=== PATIENT | female | born 1970 | race Asian ===

== ENCOUNTER 2022-12-01 11:26 | Outpatient (CLI) | payer BC, SELFPAY | END 2022-12-01 11:27 | disposition home or self-care (01) | LOC: LONREF 11:27 | PROVIDERS: Visit Provider Nurse Practitioner Family | DX: Z00.00 Encounter for general adult medical examination without abnormal findings (principal); I10 Essential (primary) hypertension | CPT/HCPCS: 80053 ==

== ENCOUNTER 2023-03-20 09:48 | Outpatient (CLI) | payer OTHER, SELFPAY | END 2023-03-20 09:49 | disposition home or self-care (01) | PROVIDERS: PCP Registered Nurse; Visit Provider Registered Nurse | DX: R10.12 Left upper quadrant pain (principal) | CPT/HCPCS: 80076; 83690 ==

== ENCOUNTER 2023-04-11 09:17 | Outpatient (CLI) | payer OTHER, SELFPAY | END 2023-04-11 09:18 | disposition home or self-care (01) | PROVIDERS: PCP Family Medicine; Visit Provider Family Medicine | DX: Z00.00 Encounter for general adult medical examination without abnormal findings (principal); I10 Essential (primary) hypertension; R74.01 Elevation of levels of liver transaminase levels; D58.2 Other hemoglobinopathies; F10.10 Alcohol abuse, uncomplicated; Z13.6 Encounter for screening for cardiovascular disorders | CPT/HCPCS: 80053; 80061; 82728; 84443 ==

== ENCOUNTER 2023-05-23 11:34 | Outpatient (CLI) | payer OTHER, SELFPAY ==
[2023-05-23 12:05] VITALS: BP 144/88; PULSE 77; RESP 16; O2SAT 97; BMI 22.7
--- NOTE | 2023-05-23 12:32 | W.ANESCHARGE ---
Anesthesia Charges Start Date/Time Anesthesia Start Date: 05/23/23 Anesthesia Start Time: 12:44 Stop Date/Time Anesthesia Stop Date: 05/23/23 Anesthesia Stop Time: 12:55
--- NOTE | 2023-05-23 12:33 | PC.NURSE ---
12:05 pm: PAtient offered Culturist, Rosa, via Ipad. Patient declined. Chemistry Research Assistant stated to verbalize if she changes her mind and would like the interpeter. Patient verbalized understanding.
--- NOTE | 2023-05-23 12:46 | PC.NURSE ---
1244: CHRISTIANO Curran present at the bedside to monitor vital signs and administer sedation. See anesthesia flowsheet.
[2023-05-23 12:55] VITALS: BP 129/68; PULSE 69; RESP 16; O2SAT 93
--- NOTE | 2023-05-23 12:56 | W.ANESCHARGE ---
Anesthesia Charges Start Date/Time Anesthesia Start Date: 05/23/23 Anesthesia Start Time: 12:44 Stop Date/Time Anesthesia Stop Date: 05/23/23 Anesthesia Stop Time: 12:55
[2023-05-23 13:05] VITALS: BP 137/64; PULSE 67; RESP 16; O2SAT 94
[2023-05-23 13:05] LABS: Basophils Absolute Auto 0.09 K/uL (0.00-0.30); Basophils Percent Auto 0.9 % (0.0-3.0); Eosinophils Absolute Auto 0.33 K/uL (0.00-0.50); Eosinophils Percent Auto 3.2 % (0.0-7.0); Hematocrit 60.4 % (33.0-51.0); Hemoglobin* 18.8 gm/dL (12.0-16.0); Immature Granulocytes Abs Auto 0.02 K/uL (0.00-0.30); Immature Granulocytes Pct Auto 0.2 %; Immature Reticulocyte Fraction 14.3 % (3.0-15.9); Lymphocytes Percent Auto 16.2 % (20-44); Mean Corpuscular HGB Conc 31 gm/dL (32-36); Mean Corpuscular Hemoglobin 25 pg (26-34); Mean Corpuscular Volume 81 fL (80-100); Monocytes Percent Auto 3.6 % (0.0-11.0); Neutrophils Percent Auto 75.9 % (42.0-72.0); Platelet Count* 344 K/uL (140-440); RDW Coefficient of Variation % 18.5 % (11.5-15.5); Red Blood Count 7.46 m/uL (4.00-5.20); Reticulocyte Hemoglobin Equivi 29.2 pg (29.0-35.0); Reticulocyte Percent 1.3 % (0.5-2.0); Reticulocytes Absolute 0.09 # (0.03-0.08); White Blood Count* 10.34 K/uL (4.50-11.00)
[2023-05-23 13:09] LABS: Slide Review Reflex No
[2023-05-23 13:16] VITALS: BP 113/71; PULSE 68; RESP 16; O2SAT 97
== END 2023-05-23 13:34 | disposition home or self-care (01) ==
LOC: OP CLINIC 11:34
PROVIDERS: PCP Family Medicine; Visit Provider Internal Medicine Hematology & Oncology
DX: D75.1 Secondary polycythemia (principal)
CPT/HCPCS: 01112; 36415; 38222; 85025; 85045; 88237; 88264; 88305; 88311; 88313; 88360; J1644; J2001; J2704

== ENCOUNTER 2023-05-30 08:51 | Outpatient (CLI) | payer OTHER, SELFPAY ==
--- NOTE | 2023-05-30 09:15 | MR_ITS ---
Patient: BRENDA SALDAÑA Facility:?[facility] Patient ID:?[id number] Site Patient ID:?[id number]. Site :?[id number] Study:?MRI-Abdomen W/ and W/O Cont 15 CC DOTAREM LIVER-05/30/2023 10:49:09 AM Ordering Physician:?LIOR GANN Final Report: INDICATION: Liver disease; elevated levels of transaminase. COMPARISON: CT chest, abdomen and pelvis with contrast May 22, 2023. TECHNIQUE: Precontrast T1 and T2 weighted imaging; T2 haste imaging; diffusion-weighted imaging; in- and out of phase imaging; postcontrast imaging including subtraction; 15 cc of MultiHance contrast was injected. Findings: The splenomegaly with the spleen measuring 12.4 cm in maximum dimension. Splenic infarct. No evidence of fatty infiltration of the liver. 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 Splenic vein is not visualized and instead collateral venous channels in the left upper quadrant of the abdomen. The superior mesenteric vein and the posterior right portal vein are unremarkable. The hepatic veins are normal. Transient perfusion abnormalities involving the left hepatic lobe most likely secondary to portal vein occlusion. A 1.5 x 0.7 cm area of restricted diffusion subcapsular location right hepatic lobe. Impression: 1. Splenomegaly with evidence of splenic infarct. 2. Splenic vein is not opacified instead there are collateral venous channels in the left upper quadrant of the abdomen. 3. 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 Dictated by Shahana Nathan MD @ 05/31/2023 10:00:41 AM Signed by:?Shahana Nathan MD @05/31/2023 10:00:41 AM (Electronic Signature)
== END 2023-05-30 08:52 | disposition home or self-care (01) ==
PROVIDERS: PCP Family Medicine; Visit Provider Internal Medicine Hematology & Oncology
DX: K76.9 Liver disease, unspecified (principal); R16.1 Splenomegaly, not elsewhere classified
CPT/HCPCS: 74183; A9575

== ENCOUNTER 2023-10-09 13:45 | Outpatient (RCR) | payer OTHER, SELFPAY ==
[2023-05-09 12:14] LABS: Basophils Absolute Auto 0.11 K/uL (0.00-0.30); Eosinophils Absolute Auto 0.42 K/uL (0.00-0.50); Hematocrit 63.7 % (33.0-51.0); Hemoglobin* 19.9 gm/dL (12.0-16.0); Immature Granulocytes Abs Auto 0.02 K/uL (0.00-0.30); Immature Granulocytes Pct Auto 0.2 %; Lymphocytes Percent Auto 13.7 % (20-44); Mean Corpuscular HGB Conc 31 gm/dL (32-36); Mean Corpuscular Hemoglobin 26 pg (26-34); Mean Corpuscular Volume 82 fL (80-100); Monocytes Percent Auto 3.9 % (0.0-11.0); Neutrophils Percent Auto 77.2 % (42.0-72.0); Platelet Count* 269 K/uL (140-440); RDW Coefficient of Variation % 17.9 % (11.5-15.5); Red Blood Count 7.79 m/uL (4.00-5.20); White Blood Count* 10.59 K/uL (4.50-11.00)
[2023-05-09 12:32] LABS: Slide Review Reflex No
[2023-05-09 12:34] LABS: Albumin* 4.5 g/dL (3.3-5.0); Iron* 75 ug/dL (37-170)
[2023-05-09 12:35] LABS: Chloride* 101 mmol/L (96-114); Potassium* 4.3 mmol/L (3.6-5.1); Sodium* 139 mmol/L (135-149)
[2023-05-09 12:37] LABS: Anion Gap 7 mEq/L (7-15); Aspartate Amino Transferase* 44 U/L (12-35); Bilirubin Total* 0.7 mg/dL (0.1-1.5); Carbon Dioxide* 31 mmol/L (20-32); Creatinine* 0.5 mg/dL (0.5-1.5); Est. Creatinine Clearance* 93.93; Estimated Glomerular Filt Rate 113 ml/min; Total Protein* 8.3 g/dL (6.0-8.3)
[2023-05-09 12:38] LABS: Alanine Aminotransferase* 68 U/L (4-35); Alkaline Phosphatase* 96 U/L (40-150); Blood Urea Nitrogen* 9 mg/dL (7-30); Calcium* 9.4 mg/dL (8.4-10.6); Glucose* 115 mg/dL (60-115)
[2023-05-09 12:43] LABS: Percent Iron Saturation 20 % (20-50); Total Iron Binding Capacity 377 ug/dL (265-497)
[2023-05-09 13:08] LABS: Hepatitis B Surface Antigen* Negative (Negative)
[2023-05-09 13:11] LABS: Ferritin* 18.4 ng/mL (11.1-264.0)
[2023-05-09 13:25] LABS: Hepatitis C Virus Antibody* Negative (Negative)
[2023-05-09 13:27] LABS: Vitamin B12* 895 pg/mL (243-894)
[2023-05-09 13:28] LABS: HIV 1/2/P24 Combo Screen* Negative (Negative)
--- NOTE | 2023-05-10 10:56 | ONC.NURNOTE ---
New hydrea start discussed reviewed dosing and other medications, and monitoring with labs reviewed lab and provider follow up schedule- appts made-calendar given discussed self care at home, safe handling and disposal handouts, phone #'s given questions addressed WARREN reviewed and signed
[2023-05-10 19:34] LABS: Erythropoietin <1 mU/mL (4-27)
[2023-05-10 21:03] LABS: Hepatitis B Core Antibody, IgM Negative (Negative)
--- NOTE | 2023-05-12 16:04 | ONC.NURNOTE ---
Spoke with [place]- reports no issues or concerns with new start of hydrea confirmed one cap/day
[2023-05-14 17:13] LABS: Qual BCR Result Not Detected; Qual BCR Source Whole Blood
--- NOTE | 2023-05-16 08:54 | ONC.NURNOTE ---
Hydrea tolerance follow up call Anisa reports no side effects of treatment no questions or concerns about dosing awaiting call to set up the BM
[2023-05-22 09:54] LABS: Basophils Absolute Auto 0.09 K/uL (0.00-0.30); Basophils Percent Auto 0.9 % (0.0-3.0); Eosinophils Absolute Auto 0.32 K/uL (0.00-0.50); Eosinophils Percent Auto 3.4 % (0.0-7.0); Hematocrit 58.5 % (33.0-51.0); Hemoglobin* 18.2 gm/dL (12.0-16.0); Immature Granulocytes Abs Auto 0.02 K/uL (0.00-0.30); Immature Granulocytes Pct Auto 0.2 %; Lymphocytes Percent Auto 13.8 % (20-44); Mean Corpuscular HGB Conc 31 gm/dL (32-36); Mean Corpuscular Hemoglobin 26 pg (26-34); Mean Corpuscular Volume 82 fL (80-100); Monocytes Percent Auto 4.3 % (0.0-11.0); Neutrophils Percent Auto 77.4 % (42.0-72.0); Platelet Count* 324 K/uL (140-440); RDW Coefficient of Variation % 18.1 % (11.5-15.5); Red Blood Count 7.14 m/uL (4.00-5.20); White Blood Count* 9.48 K/uL (4.50-11.00)
[2023-05-22 09:58] LABS: Slide Review Reflex No
[2023-06-06 09:02] LABS: Eosinophils Percent Auto 3.8 % (0.0-7.0); Hematocrit 59.3 % (33.0-51.0); Hemoglobin* 18.3 gm/dL (12.0-16.0); Lymphocytes Percent Auto 19.9 % (20-44); Mean Corpuscular HGB Conc 31 gm/dL (32-36); Mean Corpuscular Hemoglobin 26 pg (26-34); Mean Corpuscular Volume 83 fL (80-100); Neutrophils Percent Auto 69.5 % (42.0-72.0); Platelet Count* 295 K/uL (140-440); RDW Coefficient of Variation % 19.5 % (11.5-15.5); Red Blood Count 7.11 m/uL (4.00-5.20); White Blood Count* 9.05 K/uL (4.50-11.00)
[2023-06-06 09:03] LABS: Basophils Absolute Auto 0.09 K/uL (0.00-0.30); Eosinophils Absolute Auto 0.34 K/uL (0.00-0.50); Immature Granulocytes Abs Auto 0.07 K/uL (0.00-0.30); Immature Granulocytes Pct Auto 0.8 %
[2023-06-06 09:14] LABS: Slide Review Reflex No
[2023-06-06 11:03] LABS: Chloride* 104 mmol/L (96-114); Potassium* 4.3 mmol/L (3.6-5.1); Sodium* 136 mmol/L (135-149)
[2023-06-06 11:06] LABS: Alanine Aminotransferase* 47 U/L (4-35); Alkaline Phosphatase* 77 U/L (40-150); Anion Gap 2 mEq/L (7-15); Aspartate Amino Transferase* 43 U/L (12-35); Bilirubin Total* 0.7 mg/dL (0.1-1.5); Blood Urea Nitrogen* 14 mg/dL (7-30); Calcium* 8.7 mg/dL (8.4-10.6); Carbon Dioxide* 30 mmol/L (20-32); Creatinine* 0.5 mg/dL (0.5-1.5); Est. Creatinine Clearance* 99.19; Estimated Glomerular Filt Rate 113 ml/min; Glucose* 93 mg/dL (60-115); Lactate Dehydrogenase* 177 U/L (120-246); Total Protein* 7.5 g/dL (6.0-8.3)
[2023-06-07 16:31] LABS: Alpha Fetoprotein Tumor Marker 2 ng/mL (0-9)
[2023-06-19 09:07] LABS: Basophils Absolute Auto 0.07 K/uL (0.00-0.30); Eosinophils Absolute Auto 0.24 K/uL (0.00-0.50); Eosinophils Percent Auto 3.4 % (0.0-7.0); Hematocrit 58.8 % (33.0-51.0); Hemoglobin* 18.2 gm/dL (12.0-16.0); Immature Granulocytes Abs Auto 0.01 K/uL (0.00-0.30); Immature Granulocytes Pct Auto 0.1 %; Lymphocytes Percent Auto 18.2 % (20-44); Mean Corpuscular HGB Conc 31 gm/dL (32-36); Mean Corpuscular Hemoglobin 26 pg (26-34); Mean Corpuscular Volume 85 fL (80-100); Monocytes Percent Auto 3.9 % (0.0-11.0); Neutrophils Percent Auto 73.4 % (42.0-72.0); Platelet Count* 209 K/uL (140-440); RDW Coefficient of Variation % 20.6 % (11.5-15.5); Red Blood Count 6.96 m/uL (4.00-5.20)
[2023-06-19 09:09] LABS: Slide Review Reflex No
--- NOTE | 2023-06-19 15:56 | ONC.NURNOTE ---
Lab results reviewed by Dr Wall-and called to Anisa and dory Ramos Results with continued slight improvement- to continue same dose and scheduled already for lab and Dr Wall in 2 weeks taking 2 hydrea/day
[2023-07-03 09:52] LABS: Basophils Absolute Auto 0.09 K/uL (0.00-0.30); Basophils Percent Auto 1.4 % (0.0-3.0); Eosinophils Absolute Auto 0.31 K/uL (0.00-0.50); Eosinophils Percent Auto 4.8 % (0.0-7.0); Hematocrit 58.6 % (33.0-51.0); Hemoglobin* 18.2 gm/dL (12.0-16.0); Immature Granulocytes Abs Auto 0.01 K/uL (0.00-0.30); Immature Granulocytes Pct Auto 0.2 %; Lymphocytes Absolute Auto 1.29 K/uL (0.90-2.90); Mean Corpuscular HGB Conc 31 gm/dL (32-36); Mean Corpuscular Hemoglobin 27 pg (26-34); Mean Corpuscular Volume 86 fL (80-100); Monocytes Percent Auto 3.9 % (0.0-11.0); Neutrophils Absolute Auto 4.51 K/uL (1.7-7.0); Neutrophils Percent Auto 69.7 % (42.0-72.0); Platelet Count* 205 K/uL (140-440); Red Blood Count 6.85 m/uL (4.00-5.20); White Blood Count* 6.46 K/uL (4.50-11.00)
[2023-07-03 10:05] LABS: Slide Review Reflex No
[2023-07-03 10:08] LABS: Albumin* 4.5 g/dL (3.3-5.0); Chloride* 101 mmol/L (96-114)
[2023-07-03 10:09] LABS: Potassium* 3.9 mmol/L (3.6-5.1); Sodium* 135 mmol/L (135-149)
[2023-07-03 10:11] LABS: Anion Gap 8 mEq/L (7-15); Aspartate Amino Transferase* 34 U/L (12-35); Bilirubin Total* 1.2 mg/dL (0.1-1.5); Carbon Dioxide* 26 mmol/L (20-32); Creatinine* 0.5 mg/dL (0.5-1.5); Est. Creatinine Clearance* 98.98; Estimated Glomerular Filt Rate 113 ml/min; Total Protein* 7.6 g/dL (6.0-8.3)
[2023-07-03 10:12] LABS: Alkaline Phosphatase* 68 U/L (40-150); Blood Urea Nitrogen* 12 mg/dL (7-30); Calcium* 8.7 mg/dL (8.4-10.6); Glucose* 171 mg/dL (60-115); Lactate Dehydrogenase* 160 U/L (120-246)
[2023-07-03 10:27] LABS: Alanine Aminotransferase* 36 U/L (4-35)
[2023-07-17 14:18] LABS: Basophils Absolute Auto 0.06 K/uL (0.00-0.30); Eosinophils Absolute Auto 0.25 K/uL (0.00-0.50); Eosinophils Percent Auto 4.3 % (0.0-7.0); Hematocrit 56.3 % (33.0-51.0); Hemoglobin* 17.6 gm/dL (12.0-16.0); Immature Granulocytes Abs Auto 0.01 K/uL (0.00-0.30); Immature Granulocytes Pct Auto 0.2 %; Lymphocytes Percent Auto 27.7 % (20-44); Mean Corpuscular HGB Conc 31 gm/dL (32-36); Mean Corpuscular Hemoglobin 27 pg (26-34); Mean Corpuscular Volume 86 fL (80-100); Monocytes Percent Auto 4.5 % (0.0-11.0); Neutrophils Absolute Auto 3.59 K/uL (1.7-7.0); Neutrophils Percent Auto 62.3 % (42.0-72.0); Platelet Count* 216 K/uL (140-440); RDW Coefficient of Variation % 20.6 % (11.5-15.5); Red Blood Count 6.52 m/uL (4.00-5.20); White Blood Count* 5.77 K/uL (4.50-11.00)
[2023-07-17 14:29] LABS: Slide Review Reflex No
[2023-08-02 11:04] LABS: Basophils Absolute Auto 0.03 K/uL (0.00-0.30); Basophils Percent Auto 0.6 % (0.0-3.0); Eosinophils Absolute Auto 0.16 K/uL (0.00-0.50); Eosinophils Percent Auto 3.2 % (0.0-7.0); Hematocrit 51.7 % (33.0-51.0); Hemoglobin* 16.2 gm/dL (12.0-16.0); Lymphocytes Absolute Auto 1.31 K/uL (0.90-2.90); Lymphocytes Percent Auto 26.5 % (20-44); Mean Corpuscular HGB Conc 31 gm/dL (32-36); Mean Corpuscular Hemoglobin 27 pg (26-34); Mean Corpuscular Volume 87 fL (80-100); Monocytes Percent Auto 4.3 % (0.0-11.0); Neutrophils Absolute Auto 3.23 K/uL (1.7-7.0); Neutrophils Percent Auto 65.4 % (42.0-72.0); Platelet Count* 152 K/uL (140-440); RDW Coefficient of Variation % 19.6 % (11.5-15.5); Red Blood Count 5.95 m/uL (4.00-5.20); White Blood Count* 4.94 K/uL (4.50-11.00)
[2023-08-02 11:13] LABS: Slide Review Reflex No
[2023-08-02 11:24] LABS: Albumin* 4.4 g/dL (3.3-5.0); Chloride* 105 mmol/L (96-114); Sodium* 136 mmol/L (135-149)
[2023-08-02 11:25] LABS: Potassium* 3.9 mmol/L (3.6-5.1)
[2023-08-02 11:27] LABS: Alanine Aminotransferase* 89 U/L (4-35); Alkaline Phosphatase* 61 U/L (40-150); Anion Gap 5 mEq/L (7-15); Aspartate Amino Transferase* 56 U/L (12-35); Bilirubin Total* 0.9 mg/dL (0.1-1.5); Blood Urea Nitrogen* 10 mg/dL (7-30); Carbon Dioxide* 26 mmol/L (20-32); Creatinine* 0.4 mg/dL (0.5-1.5); Est. Creatinine Clearance* 123.72; Estimated Glomerular Filt Rate 120 ml/min; Glucose* 101 mg/dL (60-115); Lactate Dehydrogenase* 176 U/L (120-246); Total Protein* 7.1 g/dL (6.0-8.3)
[2023-08-02 11:28] LABS: Calcium* 8.7 mg/dL (8.4-10.6)
[2023-08-14 09:32] LABS: Basophils Absolute Auto 0.04 K/uL (0.00-0.30); Basophils Percent Auto 0.7 % (0.0-3.0); Eosinophils Percent Auto 3.7 % (0.0-7.0); Hematocrit 48.9 % (33.0-51.0); Hemoglobin* 15.6 gm/dL (12.0-16.0); Immature Granulocytes Abs Auto 0.05 K/uL (0.00-0.30); Immature Granulocytes Pct Auto 0.9 %; Lymphocytes Absolute Auto 1.62 K/uL (0.90-2.90); Lymphocytes Percent Auto 30.2 % (20-44); Mean Corpuscular HGB Conc 32 gm/dL (32-36); Mean Corpuscular Hemoglobin 28 pg (26-34); Mean Corpuscular Volume 88 fL (80-100); Monocytes Percent Auto 4.9 % (0.0-11.0); Neutrophils Absolute Auto 3.19 K/uL (1.7-7.0); Neutrophils Percent Auto 59.6 % (42.0-72.0); Platelet Count* 190 K/uL (140-440); RDW Coefficient of Variation % 19.2 % (11.5-15.5); Red Blood Count 5.53 m/uL (4.00-5.20); White Blood Count* 5.36 K/uL (4.50-11.00)
[2023-08-14 09:34] LABS: Slide Review Reflex No
[2023-08-14 09:44] LABS: Albumin* 4.2 g/dL (3.3-5.0)
[2023-08-14 09:47] LABS: Alkaline Phosphatase* 58 U/L (40-150); Aspartate Amino Transferase* 46 U/L (12-35); Bilirubin Direct* 0.1 mg/dL (0.0-0.5); Bilirubin Total* 0.9 mg/dL (0.1-1.5); Total Protein* 7.2 g/dL (6.0-8.3)
[2023-08-14 09:48] LABS: Alanine Aminotransferase* 67 U/L (4-35); Lactate Dehydrogenase* 169 U/L (120-246)
[2023-09-11 14:19] LABS: Basophils Absolute Auto 0.04 K/uL (0.00-0.30); Basophils Percent Auto 0.6 % (0.0-3.0); Eosinophils Absolute Auto 0.26 K/uL (0.00-0.50); Hematocrit 40.2 % (33.0-51.0); Hemoglobin* 12.9 gm/dL (12.0-16.0); Lymphocytes Absolute Auto 1.62 K/uL (0.90-2.90); Lymphocytes Percent Auto 24.8 % (20-44); Mean Corpuscular HGB Conc 32 gm/dL (32-36); Mean Corpuscular Hemoglobin 30 pg (26-34); Mean Corpuscular Volume 92 fL (80-100); Monocytes Percent Auto 4.8 % (0.0-11.0); Neutrophils Absolute Auto 4.29 K/uL (1.7-7.0); Neutrophils Percent Auto 65.8 % (42.0-72.0); Platelet Count* 177 K/uL (140-440); RDW Coefficient of Variation % 19.1 % (11.5-15.5); Red Blood Count 4.38 m/uL (4.00-5.20); White Blood Count* 6.52 K/uL (4.50-11.00)
[2023-09-11 14:23] LABS: Slide Review Reflex No
[2023-10-09 14:11] LABS: Basophils Absolute Auto 0.04 K/uL (0.00-0.30); Basophils Percent Auto 0.7 % (0.0-3.0); Eosinophils Absolute Auto 0.23 K/uL (0.00-0.50); Eosinophils Percent Auto 4.2 % (0.0-7.0); Hematocrit 39.5 % (33.0-51.0); Hemoglobin* 12.7 gm/dL (12.0-16.0); Immature Granulocytes Abs Auto 0.01 K/uL (0.00-0.30); Immature Granulocytes Pct Auto 0.2 %; Lymphocytes Absolute Auto 1.32 K/uL (0.90-2.90); Mean Corpuscular HGB Conc 32 gm/dL (32-36); Mean Corpuscular Hemoglobin 31 pg (26-34); Mean Corpuscular Volume 98 fL (80-100); Neutrophils Absolute Auto 3.69 K/uL (1.7-7.0); Neutrophils Percent Auto 66.9 % (42.0-72.0); Platelet Count* 177 K/uL (140-440); RDW Coefficient of Variation % 17.5 % (11.5-15.5); Red Blood Count 4.04 m/uL (4.00-5.20); White Blood Count* 5.51 K/uL (4.50-11.00)
[2023-10-09 14:42] LABS: Slide Review Reflex No
[2023-10-09 14:43] LABS: Albumin* 4.2 g/dL (3.3-5.0)
[2023-10-09 14:44] LABS: Chloride* 105 mmol/L (96-114); Potassium* 3.8 mmol/L (3.6-5.1); Sodium* 138 mmol/L (135-149)
[2023-10-09 14:46] LABS: Anion Gap 5 mEq/L (7-15); Aspartate Amino Transferase* 27 U/L (12-35); Bilirubin Total* 0.9 mg/dL (0.1-1.5); Blood Urea Nitrogen* 13 mg/dL (7-30); Carbon Dioxide* 28 mmol/L (20-32); Creatinine* 0.7 mg/dL (0.5-1.5); Estimated Glomerular Filt Rate 105 ml/min
[2023-10-09 14:47] LABS: Alanine Aminotransferase* 22 U/L (4-35); Alkaline Phosphatase* 56 U/L (40-150); Calcium* 9.1 mg/dL (8.4-10.6); Glucose* 133 mg/dL (60-115); Lactate Dehydrogenase* 175 U/L (120-246)
== END 2023-11-05 23:59 | disposition home or self-care (01) ==
LOC: CCIC 13:45
PROVIDERS: PCP Family Medicine; Referring Provider Family Medicine; Visit Provider Internal Medicine Hematology & Oncology
DX: D45 Polycythemia vera (principal); K76.9 Liver disease, unspecified; R20.0 Anesthesia of skin; R91.8 Other nonspecific abnormal finding of lung field; Z79.82 Long term (current) use of aspirin
CPT/HCPCS: 36415; 71260; 74177; 80053; 80076; 82105; 82607; 82668; 82728; 83540; 83550; 83615; 85025; 86703; 86705; 86803; 87340; 99202; 99204; 99211; 99213; 99214; 99215; G0463; Q9967

== ENCOUNTER 2024-04-16 12:45 | Outpatient (RCR) | payer OTHER, SELFPAY ==
[2023-12-11 14:19] LABS: Basophils Absolute Auto 0.04 K/uL (0.00-0.30); Basophils Percent Auto 0.7 % (0.0-3.0); Eosinophils Absolute Auto 0.24 K/uL (0.00-0.50); Eosinophils Percent Auto 4.3 % (0.0-7.0); Hematocrit 44.5 % (33.0-51.0); Hemoglobin* 14.6 gm/dL (12.0-16.0); Immature Granulocytes Abs Auto 0.01 K/uL (0.00-0.30); Immature Granulocytes Pct Auto 0.2 %; Lymphocytes Percent Auto 28.7 % (20-44); Mean Corpuscular HGB Conc 33 gm/dL (32-36); Mean Corpuscular Hemoglobin 33 pg (26-34); Mean Corpuscular Volume 102 fL (80-100); Monocytes Percent Auto 5.4 % (0.0-11.0); Neutrophils Absolute Auto 3.38 K/uL (1.7-7.0); Neutrophils Percent Auto 60.7 % (42.0-72.0); Platelet Count* 167 K/uL (140-440); RDW Coefficient of Variation % 12.1 % (11.5-15.5); Red Blood Count 4.38 m/uL (4.00-5.20); White Blood Count* 5.57 K/uL (4.50-11.00)
[2023-12-11 14:25] LABS: Slide Review Reflex No
[2023-12-11 14:40] LABS: Albumin* 4.3 g/dL (3.3-5.0); Chloride* 100 mmol/L (96-114)
[2023-12-11 14:41] LABS: Sodium* 134 mmol/L (135-149)
[2023-12-11 14:43] LABS: Alkaline Phosphatase* 53 U/L (40-150); Anion Gap 7 mEq/L (7-15); Aspartate Amino Transferase* 25 U/L (12-35); Bilirubin Total* 0.4 mg/dL (0.1-1.5); Blood Urea Nitrogen* 16 mg/dL (7-30); Carbon Dioxide* 27 mmol/L (20-32); Creatinine* 0.7 mg/dL (0.5-1.5); Estimated Glomerular Filt Rate 105 ml/min; Total Protein* 7.5 g/dL (6.0-8.3)
[2023-12-11 14:44] LABS: Alanine Aminotransferase* 21 U/L (4-35); Calcium* 8.8 mg/dL (8.4-10.6); Glucose* 102 mg/dL (60-115)
--- NOTE | 2023-12-11 15:27 | ONC.NURNOTE ---
reviewed dose and lab results with Anisa and her . next appts have been scheduled CBC remain stable with normal LFTs
[2024-01-31 13:59] LABS: Basophils Absolute Auto 0.04 K/uL (0.00-0.30); Basophils Percent Auto 0.7 % (0.0-3.0); Eosinophils Absolute Auto 0.16 K/uL (0.00-0.50); Hematocrit 43.1 % (33.0-51.0); Hemoglobin* 14.1 gm/dL (12.0-16.0); Lymphocytes Percent Auto 22.2 % (20-44); Mean Corpuscular HGB Conc 33 gm/dL (32-36); Mean Corpuscular Hemoglobin 32 pg (26-34); Mean Corpuscular Volume 98 fL (80-100); Monocytes Percent Auto 4.6 % (0.0-11.0); Neutrophils Absolute Auto 3.75 K/uL (1.7-7.0); Neutrophils Percent Auto 69.5 % (42.0-72.0); Platelet Count* 193 K/uL (140-440); RDW Coefficient of Variation % 12.8 % (11.5-15.5); Red Blood Count 4.38 m/uL (4.00-5.20)
[2024-01-31 14:10] LABS: Chloride* 104 mmol/L (96-114)
[2024-01-31 14:11] LABS: Albumin* 4.3 g/dL (3.3-5.0); Potassium* 3.9 mmol/L (3.6-5.1); Sodium* 137 mmol/L (135-149)
[2024-01-31 14:13] LABS: Bilirubin Total* 0.7 mg/dL (0.1-1.5); Creatinine* 0.6 mg/dL (0.5-1.5); Est. Creatinine Clearance* 98.89; Estimated Glomerular Filt Rate 109 ml/min
[2024-01-31 14:14] LABS: Alanine Aminotransferase* 19 U/L (4-35); Alkaline Phosphatase* 54 U/L (40-150); Anion Gap 9 mEq/L (7-15); Aspartate Amino Transferase* 21 U/L (12-35); Blood Urea Nitrogen* 10 mg/dL (7-30); Calcium* 8.8 mg/dL (8.4-10.6); Carbon Dioxide* 24 mmol/L (20-32); Glucose* 157 mg/dL (60-115); Lactate Dehydrogenase* 176 U/L (120-246); Total Protein* 7.3 g/dL (6.0-8.3)
[2024-01-31 14:34] LABS: Slide Review Reflex No
[2024-04-16 12:56] LABS: Basophils Absolute Auto 0.04 K/uL (0.00-0.30); Basophils Percent Auto 0.7 % (0.0-3.0); Eosinophils Absolute Auto 0.21 K/uL (0.00-0.50); Eosinophils Percent Auto 3.7 % (0.0-7.0); Hemoglobin* 13.9 gm/dL (12.0-16.0); Immature Granulocytes Abs Auto 0.01 K/uL (0.00-0.30); Immature Granulocytes Pct Auto 0.2 %; Lymphocytes Percent Auto 28.3 % (20-44); Mean Corpuscular HGB Conc 32 gm/dL (32-36); Mean Corpuscular Hemoglobin 32 pg (26-34); Mean Corpuscular Volume 99 fL (80-100); Monocytes Percent Auto 3.9 % (0.0-11.0); Neutrophils Absolute Auto 3.58 K/uL (1.7-7.0); Neutrophils Percent Auto 63.2 % (42.0-72.0); Platelet Count* 219 K/uL (140-440); RDW Coefficient of Variation % 12.9 % (11.5-15.5); Red Blood Count 4.35 m/uL (4.00-5.20); White Blood Count* 5.66 K/uL (4.50-11.00)
[2024-04-16 13:03] LABS: Slide Review Reflex No
[2024-04-16 13:10] LABS: Albumin* 4.4 g/dL (3.3-5.0); Chloride* 102 mmol/L (96-114)
[2024-04-16 13:11] LABS: Potassium* 3.9 mmol/L (3.6-5.1); Sodium* 138 mmol/L (135-149)
[2024-04-16 13:13] LABS: Anion Gap 8 mEq/L (7-15); Aspartate Amino Transferase* 21 U/L (12-35); Bilirubin Total* 0.4 mg/dL (0.1-1.5); Blood Urea Nitrogen* 9 mg/dL (7-30); Carbon Dioxide* 28 mmol/L (20-32); Creatinine* 0.6 mg/dL (0.5-1.5); Est. Creatinine Clearance* 98.69; Estimated Glomerular Filt Rate 108 ml/min; Total Protein* 7.6 g/dL (6.0-8.3)
[2024-04-16 13:14] LABS: Alanine Aminotransferase* 20 U/L (4-35); Alkaline Phosphatase* 56 U/L (40-150); Glucose* 146 mg/dL (60-115); Lactate Dehydrogenase* 180 U/L (120-246)
== END 2024-06-08 23:59 | disposition home or self-care (01) ==
LOC: CCIC 12:45
PROVIDERS: PCP Family Medicine; Referring Provider Family Medicine; Visit Provider Internal Medicine Hematology & Oncology
DX: D45 Polycythemia vera (principal); K76.9 Liver disease, unspecified; D58.2 Other hemoglobinopathies; Z79.82 Long term (current) use of aspirin; R91.8 Other nonspecific abnormal finding of lung field
CPT/HCPCS: 36415; 80053; 83615; 85025; 99213; 99214; G0463

== ENCOUNTER 2024-05-01 15:28 | Outpatient (CLI) | payer OTHER, SELFPAY | END 2024-05-01 15:29 | disposition home or self-care (01) | LOC: NFLDUCREF 15:29 | PROVIDERS: PCP Family Medicine | DX: L02.91 Cutaneous abscess, unspecified (principal) | CPT/HCPCS: 87070; 87186 ==

== ENCOUNTER 2024-10-23 13:30 | Outpatient (RCR) | payer OTHER, SELFPAY ==
[2024-07-16 14:06] LABS: Hematocrit* 43.8 % (33.0-51.0); Hemoglobin* 14.0 gm/dL (12.0-16.0); Immature Granulocytes Abs Auto 0.00 K/uL (0.00-0.30); Immature Granulocytes Pct Auto 0.0 %; Lymphocytes Absolute Auto 1.43 K/uL (0.90-2.90); Mean Corpuscular HGB Conc 32 gm/dL (32-36); Mean Corpuscular Hemoglobin 31 pg (26-34); Mean Corpuscular Volume 97 fL (80-100); RDW Coefficient of Variation % 12.8 % (11.5-15.5); Red Blood Count* 4.50 m/uL (4.00-5.20); White Blood Count* 5.39 K/uL (4.50-11.00)
[2024-07-16 14:14] LABS: Slide Review Reflex No
[2024-07-16 14:25] LABS: Albumin* 4.4 g/dL (3.3-5.0); Chloride* 103 mmol/L (96-114); Sodium* 138 mmol/L (135-149)
[2024-07-16 14:26] LABS: Potassium* 4.2 mmol/L (3.6-5.1)
[2024-07-16 14:28] LABS: Alanine Aminotransferase* 28 U/L (4-35); Alkaline Phosphatase* 68 U/L (40-150); Anion Gap 7 mEq/L (7-15); Aspartate Amino Transferase* 32 U/L (12-35); Bilirubin Total* 0.4 mg/dL (0.1-1.5); Blood Urea Nitrogen* 14 mg/dL (7-30); Carbon Dioxide* 28 mmol/L (20-32); Creatinine* 0.6 mg/dL (0.5-1.5); Estimated Glomerular Filt Rate 108 ml/min; Total Protein* 7.9 g/dL (6.0-8.3)
[2024-07-16 14:29] LABS: Calcium* 9.0 mg/dL (8.4-10.6); Glucose* 110 mg/dL (60-115)
--- NOTE | 2024-07-17 09:55 | ONC.NURNOTE ---
Lab results called to Rachel ()- message left on VM to call results all very stable no dose change continue 500 mg M-F and 1000 mg SS RTC 10/23 with and lab appt
--- NOTE | 2024-11-21 13:51 | ONC.NURNOTE ---
Message left on Voicemail to call to schedule for overdue lab
--- NOTE | 2024-12-17 14:31 | ONC.NURNOTE ---
missed appt letter sent to patients listed home address
--- NOTE | 2025-01-07 12:38 | ONC.NURNOTE ---
Addendum entered by Fabiana Silverman RN 01/08/25 11:41: Dr. Wall aware. Script for Hydrea was cancelled. Original Note: Per the direction of [facility], Dilcia Jones RN, this sheet writer contacted pt's pharmacy to see if she has been refilling her Hydrea as pt has not attended any of her scheduled appointments nor has she been in for routine lab monitoring. Spoke with Kostas Knowles at [facility] in and it was shared that Anisa has not refilled a Hydrea script since 06/17/2024. The new script sent to [facility] in August, was filled but never picked up. Also of note, pt hasn't refilled any of her other prescription medications since 07/30/2024. Will update DAVE Ha. Also of note, pt hasn't seen her PCP, Dr. Carlin, since April,.
== END 2025-01-12 23:59 | disposition home or self-care (01) ==
LOC: CCIC 13:30
PROVIDERS: PCP Family Medicine; Referring Provider Family Medicine; Visit Provider Internal Medicine Hematology & Oncology
DX: D45 Polycythemia vera (principal)
CPT/HCPCS: 36415; 80053; 83615; 85025